=== PATIENT | male | born 1980 | race Caucasian/White ===

== ENCOUNTER → 2018-04-22 | Outpatient (CLI) | payer OTHER | END | disposition home or self-care (01) | LOC: RAD 11:00 | PROVIDERS: ATTEND Physician Assistant Surgical | DX: S46.211A Strain of muscle, fascia and tendon of other parts of biceps, right arm, initial encounter (principal); R60.9 Edema, unspecified; X58.XXXA Exposure to other specified factors, initial encounter; Y93.89 Activity, other specified; Y92.89 Other specified places as the place of occurrence of the external cause; Y99.8 Other external cause status | CPT/HCPCS: 70250 ==

== ENCOUNTER 2018-04-25 12:58 | Day surgery (SDC) | payer OTHER ==
[~2018-04-25] VITALS: Ht 190.5 cm; Wt 157.9 kg
[~2018-04-25 12:58] MED LIST: BUPIVACAINE/PF-EPI 0.5% 1:200K ONE
[2018-04-25] MEDS ORDERED: LACTATED RINGERS 1,000 ML IV SCH (13:12)
[2018-04-25] MEDS ORDERED: PLEASE ENTER HEIGHT AND WEIGHT MC SCH (13:30)
[2018-04-25] MEDS ORDERED: ONDANSETRON ODT 8 MG PO ONE (13:30)
[2018-04-25] MEDS ORDERED: GABAPENTIN 300 MG CAPSULE PO ONE (13:30)
[2018-04-25] MEDS ORDERED: ACETAMINOPHEN 500 MG TABLET PO ONE (13:30)
[2018-04-25] MEDS ORDERED: OxyconTIN ER 20 MG TAB.ER PO ONE (13:30)
[2018-04-25] MEDS ORDERED: MIDAZOLAM 1 MG/ML, 2ML ONE (14:02)
[2018-04-25] MEDS ORDERED: FENTANYL PF 250 MCG/5ML ONE (14:02)
[2018-04-25] MEDS ORDERED: KETOROLAC 30 MG/1 ML ONE (15:52)
[2018-04-25] MEDS ORDERED: ROCURONIUM 10 MG/ML,10ML ONE (15:52)
[2018-04-25] MEDS ORDERED: EPHEDRINE 50 MG/ML, 1ML IM PRN (16:30)
[2018-04-25] MEDS ORDERED: MIDAZOLAM 1 MG/ML, 2ML IV PRN (16:30)
[2018-04-25] MEDS ORDERED: ONDANSETRON ODT 8 MG PO PRN (16:30)
[2018-04-25] MEDS ORDERED: ALBUTEROL/IPRATROPIUM 2.5MG/0.5MG, 3 ML NPPB PRN (16:30)
[2018-04-25] MEDS ORDERED: SCOPOLAMINE PATCH, 1.5MG PATCH.TD72 TD PRN (16:30)
[2018-04-25] MEDS ORDERED: OXYcodone 5 MG/5 ML ORAL.SOL UDC PO PRN (16:30)
[2018-04-25] MEDS ORDERED: PROMETHAZINE 12.5 MG SUPP PR PRN (16:30)
[2018-04-25] MEDS ORDERED: MEPERIDINE/PF 25MG/0.5ML IVPush PRN (16:30)
[2018-04-25] MEDS ORDERED: HYDROmorphone 2 MG/ML, 1ML IV PRN (16:30)
[2018-04-25] MEDS ORDERED: NEOSPORIN OINT, 15GM ONE (16:32)
[2018-04-25] MEDS ORDERED: DEXAMETHASONE 4 MG/ML, 1ML ONE ×2 (16:48)
[2018-04-25] MEDS ORDERED: PROPOFOL 10 MG/ML, 20ML ONE ×2 (16:48)
[2018-04-25] MEDS ORDERED: SUCCINYLCHOLINE 20 MG/ML, 10ML ONE (16:48)
[2018-04-25] MEDS ORDERED: CEFAZOLIN 1,000 MG ONE (16:48)
[2018-04-25] MEDS ORDERED: LABETALOL 5MG/ML, 20ML ONE (17:18)
[2018-04-25] MEDS: LABETALOL 5MG/ML, 20ML IV PRN ×3 (17:20→17:44)
[2018-04-25] MEDS ORDERED: hydrALAzine 20 MG/ML, 1ML ONE (17:55)
[2018-04-25] MEDS: hydrALAzine 20 MG/ML, 1ML IV PRN ×2 (17:59→18:23)
[2018-04-25] MEDS ORDERED: FENTANYL PF 100 MCG/2ML ONE (18:02)
[2018-04-25] MEDS: FENTANYL PF 100 MCG/2ML IV PRN ×2 (18:05→18:42)
[2018-04-25] MEDS ORDERED: OXYcodone 5 MG/5 ML ORAL.SOL UDC ONE (18:38)
[2018-04-25] MEDS ORDERED: ONDANSETRON ODT 8 MG ONE (19:06)
[2018-04-25] MEDS ORDERED: SCOPOLAMINE PATCH, 1.5MG PATCH.TD72 TD ONE (19:08)
[2018-04-25] MEDS ORDERED: HYDROmorphone 1 MG/ML, 1ML IV PRN (20:30)
[2018-04-25] MEDS ORDERED: HYDROcodone/APAP 10/325 MG TABLET PO PRN (20:30)
[2018-04-25] MEDS ORDERED: HYDROmorphone 1 MG/ML, 1ML IV ONE (20:30)
== END 2018-04-25 21:00 | disposition home or self-care (01) ==
LOC: OUT 12:58 → 4NOR 19:45 → OUT 21:00
PROVIDERS: ATTEND Orthopaedic Surgery
DX: S46.211A Strain of muscle, fascia and tendon of other parts of biceps, right arm, initial encounter (principal); E66.01 Morbid (severe) obesity due to excess calories; Z68.41 Body mass index [BMI] 40.0-44.9, adult; X58.XXXA Exposure to other specified factors, initial encounter; Y93.89 Activity, other specified; Y92.89 Other specified places as the place of occurrence of the external cause; Y99.8 Other external cause status
CPT/HCPCS: 24342; C1713; J0330; J0360; J0690; J1100; J1170; J1885; J2175; J2250; J2704; J3010; J7120; Q0162; G0378